=== PATIENT | male | born 1970 ===

== ENCOUNTER 2018-02-19 12:40 | Inpatient (IN) | payer OTHER ==
[~2018-02-19] VITALS: Ht 172.7 cm; Wt 82.1 kg
[~2018-02-19 12:40] MED LIST: FIRST-OMEPR2 MG/1 ML PO; RANITIDINE HCL300 MG PO
[2018-03-03] MEDS ORDERED: LAMICTAL25 MG PO (10:24)
[2018-03-03] MEDS ORDERED: ATIVAN0.5 M1 PO (10:25)
[2018-03-03] MEDS ORDERED: NORVASC2.5 M1 PO (10:25)
[2018-03-03] MEDS ORDERED: WELLBUTRIN SR150 MG PO (10:25)
[2018-03-03] MEDS ORDERED: LIPITOR PO (10:26)
[2018-03-12] MEDS ORDERED: DOCUSATE SODIU100 MG PO (07:55)
[2018-03-12] MEDS ORDERED: GABAPENTIN800 MG PO (07:55)
[2018-03-12] MEDS ORDERED: AMOX-CLAV 875-1 EACH PO (07:56)
[2018-03-12] MEDS ORDERED: CLONAZEPAM1 MG PO (07:57)
[2018-03-12] MEDS ORDERED: PERCOCET 5-3251 EACH PO (07:57)
== END 2018-03-12 13:16 | DRG 460 ==
LOC: O/R 03-11 05:00 → SURH 03-11 10:00 → PED 03-11 16:11
PROVIDERS: Orthopaedic Surgery Orthopaedic Surgery of the Spine
PROC: 00NY0ZZ Release Lumbar Spinal Cord, Open Approach (ICD-10-PCS; 2018-03-11)
PROC: 0ST40ZZ Resection of Lumbosacral Disc, Open Approach (ICD-10-PCS; 2018-03-11)
PROC: 07DS3ZZ Extraction of Vertebral Bone Marrow, Percutaneous Approach (ICD-10-PCS; 2018-03-11)
PROC: 0SG30AJ Fusion of Lumbosacral Joint with Interbody Fusion Device, Posterior Approach, Anterior Column, Open Approach (ICD-10-PCS; principal; 2018-03-11 15:30)
DX: M96.0 Pseudarthrosis after fusion or arthrodesis (principal); D68.62 Lupus anticoagulant syndrome; M51.17 Intervertebral disc disorders with radiculopathy, lumbosacral region; I11.9 Hypertensive heart disease without heart failure; E78.00 Pure hypercholesterolemia, unspecified

== ENCOUNTER 2020-02-09 06:40 | Day surgery (SDC) | payer OTHER ==
[~2020-02-09 06:40] MED LIST changes: +AMOX-CLAV 875-1 EACH PO; +ATIVAN0.5 M1 PO; +CLONAZEPAM1 MG PO; +DOCUSATE SODIU100 MG PO; +GABAPENTIN800 MG PO; +LAMICTAL25 MG PO; +LIPITOR PO; +NORVASC2.5 M1 PO; +PERCOCET 5-3251 EACH PO; +WELLBUTRIN SR150 MG PO
== END 2020-02-09 09:47 | disposition home or self-care (01) ==
LOC: AMB-ENDOS 06:40
PROVIDERS: ATTEND Surgery
DX: K62.89 Other specified diseases of anus and rectum (principal); K64.8 Other hemorrhoids; Z20.828 Contact with and (suspected) exposure to other viral communicable diseases

== ENCOUNTER 2020-06-13 07:30 | Outpatient (CLI) | payer OTHER | END 2020-06-13 08:59 | disposition home or self-care (01) | LOC: SONOGRAMA 07:30 | PROVIDERS: ATTEND Urology | DX: R10.84 Generalized abdominal pain (principal); F52.21 Male erectile disorder ==